=== PATIENT | female | born 1975 | race African-American/Black ===

== ENCOUNTER 2016-08-31 09:46 | Inpatient (IN) | payer OTHER ==
[2016-08-31] MEDS ORDERED: TYLENOL PO PRN (10:49)
[2016-08-31] MEDS ORDERED: VANCOMYCIN IV PER PHARMACY MISC SCH (11:00)
[2016-08-31 12:03] LABS: MANUAL DIFF NEEDED? NO
[2016-08-31 12:14] LABS: BASO% 0.3 % (0.0-0.8); EOS% 1.5 % (0.0-10.0); HEMATOCRIT 35.6 % (37.0-47.0); HEMOGLOBIN 11.6 g/dL (12.0-16.0); IMM GRAN# 0.02 X1000 (0.0-0.04); IMM GRAN% 0.2 % (0.0-0.5); LYMPH# 2.98 X1000 (1.2-3.4); LYMPH% 22.7 % (20.5-51.1); MCH 26.5 PG (27-31); MCHC 32.6 g/dL (33-37); MCV 81.3 FL (81-99); MONO% 6.1 % (1.7-9.3); MPV 11.4 FL (7.4-10.4); NEUT% 69.2 % (42.2-75.2); PLT 331 X1000 (130-400); RBC 4.38 XMIL (4.2-5.4)
[2016-08-31 12:28] LABS: INR 1.07; PROTIME 11.3 Seconds (9.2-11.7)
[2016-08-31 12:31] LABS: AGAP 14; ALBUMIN 3.1 g/dL (3.5-5.0); ALKALINE PHOSPHATASE 80 U/L (32-104); BUN 6 mg/dL (8-22); CALCIUM 8.8 mg/dL (8.8-10.2); CHLORIDE 93 mmol/L (98-107); COSMO 260; GOT 8 U/L (10-30); GPT 6 U/L (10-36); POTASSIUM 2.9 mmol/L (3.5-5.1); SODIUM 131 mmol/L (136-145); TCO2 24 mmol/L (25-35); TOTAL BILIRUBIN 0.32 mg/dL (0.20-1.00); TOTAL PROTEIN 8.7 g/dL (6.3-8.3)
[2016-08-31] MEDS ORDERED: KLOR-CON PO ONE (13:37)
[2016-08-31] MEDS: OXYCONTIN PO SCH ×2 (13:57→20:19)
[2016-08-31] MEDS: LYRICA PO SCH ×2 (13:57→16:49)
[2016-08-31] MEDS: ZOSYN 3.375 GM/NS 50 ML IV SCH ×4 (13:58→23:48)
[2016-08-31] MEDS: XANAX PO SCH ×2 (13:58→16:49)
[2016-08-31] MEDS: NS 1,000 ML IV SCH (13:58)
[2016-08-31] MEDS ORDERED: VANCOMYCIN 2,000 MG in NS 500 ML IV ONE (14:00)
[2016-08-31 14:36] LABS: URINE MICRO REVIEW NEEDED? NO; URINE SOURCE CLEAN CATCH
[2016-08-31 14:51] LABS: BILIRUBIN URINE NEGATIVE (NEGATIVE); BLOOD URINE NEGATIVE (NEGATIVE); COLOR YELLOW; GLUCOSE URINE NEGATIVE (NEGATIVE); LEUKOCYTES URINE MODERATE (NEGATIVE); NITRITE URINE NEGATIVE (NEGATIVE); PROTEIN URINE TRACE mg/dL (NEGATIVE); SP GRAVITY URINE 1.018; TURBIDITY URINE HAZY (CLEAR); UROBILINOGEN URINE 4 mg/dL (NORMAL)
[2016-08-31 14:52] LABS: UR EPITHELIAL CELLS >10 /HPF (<10); URINE BACTERIA NEGATIVE /HPF; URINE RBC <10 /HPF (<10); URINE WBC <10 /HPF (<10)
[2016-08-31 14:59] LABS: UR AMPHETAMINES QUAL NONE DETECTED (NONE DETECT); UR BARBITUATES QUAL NONE DETECTED (NONE DETECT); UR BENZODIAZEPIN QUAL NONE DETECTED (NONE DETECT); UR CANNABINOIDS QUAL NONE DETECTED (NONE DETECT); UR COCAINE QUAL NONE DETECTED (NONE DETECT); UR METHADONE QUAL NONE DETECTED (NONE DETECT); UR OPIATES QUAL NONE DETECTED (NONE DETECT); UR OXYCODONE QUAL PRESUMPTIVE POSITIVE (NONE DETECT); UR PCP QUAL NONE DETECTED (NONE DETECT)
--- NOTE | 2016-08-31 16:41 | HISTORY AND PHYSICAL ---
CHIEF COMPLAINT: Pain and swelling in her left lower arm as well as bilateral lower extremities and the upper thigh above the knee. Swelling and pain. HISTORY OF PRESENT ILLNESS: Ms. Randhawa is a 41-year-old, female, who has a history, she reports of IV drug abuse. She states that she has not done IV drugs in 7 years, chronic pain disorder, hypertension,that she does not take medications for, restless legs syndrome, sleep apnea. She stopped using a CPAP machine a few years ago. Migraines as well as restless legs syndrome and depression and anxiety. The patient has been treated for multiple abscesses at [facility] as well back in December 2015 and then again back in June 2016 and then again 2 weeks ago from [facility] in 2017 where she was placed on clindamycin and Bactrim. She did see the [facility] who referred her to Dr. Hunt. The patient also stated that back in February 2016, she was visiting her sister in [place]. She was brought to [facility] for the same thing again, abscesses. At that time, she was discharged with home IV antibiotics. The patient reported that her bilateral upper thigh abscesses, which are above both knees and then one higher up on her right thigh as well as one on her lower right singleton that are reddened and look irritated, somewhat oozy, some are more healed than others. She states that she went to [facility] 2 weeks ago where she was put on clindamycin and Bactrim for those. She states the abscess on her left lower extremity popped up on Wednesday on 08/30/2016. The patient did report subjective fevers and chills. The patient did go to see Dr. Hunt today. She was a direct admit and started on IV vancomycin as well as IV Zosyn. Patient denies any chest pain, shortness of breath, palpitations, no nausea, vomiting, diarrhea. Again, she adamantly denies still doing any IV drug use. However, her sites multiple on upper and lower extremities that look like she has IV popping. We have ordered a urine drug screen and waiting a multitude of tests. PAST MEDICAL HISTORY: Chronic pain disorder, depression and anxiety, hypertension but on no home medications, sleep apnea, but patient stopped using her CPAP machine years ago, migraines, restless legs syndrome. PAST SURGICAL HISTORY: 1. Back surgery. 2. . 3. Hysterectomy. 4. Tubal ligation. 5. Multiple incision and drainages to abscesses on upper and lower extremities. SOCIAL HISTORY: Patient denies any IV drug use. She stated that was 7 years ago. She stated at 1 point it was oxycodone and Dilaudid and she told Dr. Hunt heroine. 15 pack year history of smoking. Denies any alcohol. FAMILY HISTORY: Reviewed, noncontributory. ALLERGIES: No known drug allergies. HOME MEDICATIONS: 1. Stated that she took a Xanax 0.5 mg p.o. t.i.d. 2. OxyContin 30 mg p.o. t.i.d. 3. Lyrica 100 mg p.o. t.i.d. PHYSICAL EXAMINATION: VITAL SIGNS: Have not been taken. GENERAL: Ms. Randhawa is a 41-year-old, female, sitting up in bed, in no acute distress. However, she does look shaky and tearful. HEENT: Atraumatic, normocephalic. PERRL. NECK: Supple. Trachea midline. CARDIOVASCULAR: Regular rate and rhythm. No murmurs, gallops, rubs noted. PULMONARY: Bilateral breath sounds. Clear to auscultation bilaterally. GI: Soft, nontender, nondistended. Bowel sounds are present. EXTREMITIES: There is no clubbing or cyanosis or bilateral lower extremity edema. SKIN: On her left forearm, she does have a red, swollen area that does appear to be an abscess that Dr. Hunt did cultures on. She also has another area on her left chest close to her armpit as well as other several other areas on her upper extremities as well as lower extremities, mainly on the upper thigh she does have one on the right lower extremity. I did check her feet. I did not find any ulcers or any skin breakage on her feet. NEUROLOGIC: Patient is alert and oriented x4. She does follow commands. She does move all extremities. LABORATORY DATA: None, DIAGNOSTIC DATA: None. They are all pending. ASSESSMENT AND PLAN: 1. Multiple skin abscesses. Possibly question of intravenous drug use. The patient was seen by Dr. Hunt today. She was a direct admit. Started intravenous Zosyn as well as vancomycin. He has cultured one of the wound. We have ordered blood cultures, as well as laboratory data as well as wound care and also a Surgical consultation for the left wound on the forearm. 2. Intravenous drug use history. Given the looks of the abscesses as well as multiple places on her arms, we do believe that the patient is possibly still doing intravenous drugs. We have checked a urine drug screen. We will monitor her closely for any withdrawals. 3. Chronic pain disorder. Continue with her home medications. 4. Depression and anxiety. Continue with home medications. 5. Hypertension. We will monitor. No vital signs to correlate yet. 6. Restless leg syndrome. Aware. 7. Migraines. Aware. Further recommendations are to follow physician evaluation, laboratory data as well as diagnostic data and cultures. Dictated by NAI Gama for Con Mcintyre MD MTDD
[2016-08-31] MEDS: NICODERM PATCH TD SCH (16:45)
--- NOTE | 2016-08-31 17:50 | CONSULTATION ---
DATE OF CONSULTATION: 08/31/2016 CONCLUSION: This is a 41-year-old female who was admitted the hospital with multiple areas where she previously has had abscesses. In addition, she has a new one in her left arm which has gotten to be very large and painful. It should be noted that the patient does have a history of IV drug abuse which certainly could be the cause of her abscesses. RECOMMENDATIONS: After cleaning off the arm I stuck a very small gauge needle about a centimeter deep and some sanguinous and purulent fluid was obtained which I have sent to the lab for culture. I also suggest starting the patient on a combination of vancomycin and Zosyn pending culture results. DISCUSSION: The patient tells me that for the past 3.5 years. She has had abscesses that occur all over her body and often have to be drained. She takes antibiotics to clear them, the ones that do not require drainage. Her most recent one is in the left arm. It in the past week has gotten very swollen erythematous. I do not have any lab work back yet on the patient. LAB AND X-RAYS: Also, there are no lab or radiographic studies yet. PAST GUIDANCE ADVISER HISTORY: She is a 3, para 3, AB0. She has had a hysterectomy and tubal ligation. PREVIOUS HOSPITALIZATIONS AND OPERATIONS: She has had labor and deliveries, a hysterectomy, tubal ligation, admission for infection involving the right knee, and also was admitted for abscesses to [facility]. She has been admitted before for IV antibiotics due to infection which most likely was caused by IV drug abuse. MEDICAL DISEASES: Positive for hypertension and IV drug abuse. INFECTIOUS DISEASE HISTORY: Positive for cutaneous abscesses most likely secondary to IV drug abuse, urinary tract infection, and pneumonia. FAMILY HISTORY: Positive for hypertension and cancer. SOCIAL HISTORY: The patient lives in [place]. She is single. She smoke cigarettes. She denies alcoholic beverages. She denied having drug abuse but according to the prior hospitalization in [facility] and 1 in [facility] the patient is an IV drug abuser. She is on disability. ALLERGIES: She has no allergies. HOME MEDICATIONS: She told me her home medications consist of Xanax, OxyContin , and Lyrica. REVIEW OF SYSTEMS: Eyes and ears: She denies difficulty hearing or seeing. Neck: No stiffness. Respiratory: No cough or shortness of breath. Cardiac: No chest pain or palpitations. GI: No nausea, vomiting, or diarrhea. : No dysuria or flank pain. Bones, joints, muscles: No muscle aching or joint swelling at this time. Previously she apparently had infection involving her right knee. Endocrine: The patient is not a diabetic and she does not have thyroid disease. Neurologic: No motor or sensory deficit. No seizures. The remainder of the patient's review of systems was completed and was negative. PHYSICAL EXAMINATION: Vital Signs: Vital signs have not been put in the computer yet except for the patient's weight which is 209 pounds. Generally: This is an obese, young female, who seems to be having a lot of pain, especially with the infection in her left arm. Head, eyes, ears, nose, and throat: She can hear my spoken words and see near objects. No drainage noted from the nose or ears. Neck: No meningismus. Thorax: No increased AP diameter. Lungs : Clear to auscultation. Cardiovascular: Regular heart rate. Abdomen: Soft and nontender. Integument: The patient has a fairly large erythematous, indurated, and fluctuant area on her left arm. The patient has multiple scars from prior infections on her body including her extremities. Neurologic: Patient is awake. She can move her extremities. There is no tremor. The patient's memory as regarding her medical history seemed to be fairly good. Thank you for the consult. MTDD
[2016-09-01] MEDS: LYRICA PO SCH ×3 (00:02→17:01)
[2016-09-01] MEDS: XANAX PO SCH ×3 (00:02→17:01)
[2016-09-01] MEDS: ZOSYN 3.375 GM/NS 50 ML IV SCH ×3 (04:35→17:01)
[2016-09-01] MEDS: OXYCONTIN PO SCH ×3 (04:35→21:44)
[2016-09-01] MEDS: VANCOMYCIN 1,750 MG in NS 250 ML IV SCH ×2 (04:36→17:39)
--- NOTE | 2016-09-01 05:36 | CONSULTATION ---
DATE OF CONSULTATION: 09/01/2016 REASON FOR CONSULTATION: Left forearm abscess. HISTORY OF PRESENT ILLNESS: A 41-year-old female with recurrent abscesses all over body, most notably in her left forearm. This has been going on for some time, probably several weeks. She has a very tender, swollen, and red area in the forearm. She has a history of IV drug injections and multiple infections of her extremities. PAST MEDICAL HISTORY: Chronic pain disorder, hypertension, depression, anxiety, restless legs syndrome, sleep apnea, migraines, IV drug abuse, and multiple skin infections. PAST SURGICAL HISTORY: Back surgery, section, hysterectomy, and tubal ligation. HOME MEDICATIONS: Xanax, OxyContin, and Lyrica. ALLERGIES: No known drug allergies. FAMILY HISTORY: Reviewed and noncontributory. SOCIAL HISTORY: She does smoke and has a history of IV drug use. REVIEW OF SYSTEMS: Ten systems reviewed and negative, except as noted above. PHYSICAL EXAMINATION: Vital Signs: Temperature 97.9 degrees, pulse 72, respirations 16, blood pressure 119/47. General: She is a well-developed female, who looks uncomfortable. She looks her stated age. HEENT: Normocephalic, atraumatic. Extraocular muscles intact. Pupils equal, round, reactive to light. Sclerae anicteric. Moist mucous membranes. Neck: Supple. No thyromegaly. Cardiovascular: Regular rate and rhythm. Respiratory: Bilateral equal breath sounds. Gastrointestinal: Soft, nontender, nondistended. No mass or organomegaly appreciated. Extremities: She has swelling in her left forearm. No clubbing or cyanosis throughout. Skin: There are multiple healing ulcerations in all extremities with scabs and some open sores. She has no evidence of any hidradenitis in her groin or axilla. She does have what appears to be multiple scars and injection sites along her arms and chest, and the left forearm there is a very tender, indurated, and fluctuant area consistent with an abscess. LABORATORY: White blood cell count 13,000, hemoglobin 11.6, platelet count 331,000. Sodium 131, potassium 2.9, chloride 93, CO2 24, BUN 6. ASSESSMENT/PLAN: A 41-year-old female with left forearm abscess, likely secondary to IV drug injection. This does not appear to be consistent with any kind of hidradenitis suppurativa. She will need drainage in the operating room. Discussed the risks and benefits with her including bleeding, recurrent infections, nerve injury, and other imponderables. She understands and agrees to proceed.
[2016-09-01] MEDS: NS 1,000 ML IV SCH ×2 (07:15→13:24)
[2016-09-01 07:45] LABS: AGAP 11; BUN 9 mg/dL (8-22); CALCIUM 7.6 mg/dL (8.8-10.2); CHLORIDE 105 mmol/L (98-107); COSMO 275; POTASSIUM 3.2 mmol/L (3.5-5.1); SODIUM 139 mmol/L (136-145); TCO2 23 mmol/L (25-35)
[2016-09-01 07:58] LABS: HEMATOCRIT 30.9 % (37.0-47.0); HEMOGLOBIN 9.7 g/dL (12.0-16.0); MCH 26.8 PG (27-31); MCHC 31.4 g/dL (33-37); MCV 85.4 FL (81-99); MPV 11.1 FL (7.4-10.4); RBC 3.62 XMIL (4.2-5.4)
[2016-09-01] MEDS: PRILOSEC PO SCH (09:54)
[2016-09-01] MEDS: NICODERM PATCH TD SCH (09:54)
[2016-09-01] MEDS ORDERED: KLOR-CON PO ONE (14:31)
[2016-09-01] MEDS ORDERED: VERSED ONE (14:36)
--- NOTE | 2016-09-01 15:49 | PROGRESS NOTE ---
DATE: 09/01/2016 PRESENT ILLNESS: The patient has multiple abscesses all over her body. Most of them have drained out and are scarred over. She has an especially bad 1 on her left arm which has been present for approximately a week that is very erythematous, indurated, and fluctuant. MEDICATIONS: The patient is on a combination of vancomycin and Zosyn pending culture results. PHYSICAL EXAMINATION: Vital Signs: Temperature is 97.9 degrees, pulse 71, respirations 16, blood pressure 118/68. General: This is an ill-appearing, young female. She is in no acute distress. Lungs: Clear to auscultation. Cardiovascular: Regular heart rate. Abdomen: Soft and nontender. Integument: Patient has multiple areas that at 1 time were abscessed and now have drained and are scarred over. She has, as mentioned above, on the left arm a very large erythematous, indurated, and fluctuant area. LAB AND X-RAY: There is no new x-ray report back yet today. Patient's CBC shows a white count of 12,550, hemoglobin 9.7, and platelet count 286,000. Creatinine is 0.6. GFR is greater than 60. Blood, urine, and a culture from the patient's left arm thus far are negative. ASSESSMENT AND PLAN: The patient has been taken off now for surgery to be performed by Dr. Cano. My plan is to continue her current antibiotics pending culture results. Patient's comorbidity is that she has a history of IV drug abuse. She told me that it has been over 5 years that she not done any IV drug abuse but she does have all these abscesses over her body and it would seem that she still may be doing IV drug abuse. She had mentioned the disease hydradenitis suppurativa but I and Dr. Cano do not feel that these lesions are due to that diagnosis.
[2016-09-01] MEDS ORDERED: DIPRIVAN 1% ONE (15:50)
[2016-09-01] MEDS ORDERED: PHENERGAN ONE (16:02)
[2016-09-01] MEDS: DILAUDID ONE ×3 (16:02→16:15)
--- NOTE | 2016-09-01 16:18 | OPERATIVE NOTE ---
PROCEDURE DATE: 09/01/2016 PREOPERATIVE DIAGNOSIS: Left forearm abscess. POSTOPERATIVE DIAGNOSIS: Left forearm abscess. PROCEDURE: Incision and drainage of left forearm abscess. SURGEON: Rafy Cano MD. ANESTHESIA: General. ESTIMATED BLOOD LOSS: 3 mL. COMPLICATIONS: None apparent. FINDINGS: A large amount of purulent fluid in the superficial subcutaneous tissue. TECHNIQUE: She was brought to the operating room and placed supine on the table. General anesthesia was induced. Her left arm was placed on a armboard. It was prepped and draped in the usual sterile fashion. A knife was used to make incision over the fluctuant area. A large amount of pus was drained. The wound was irrigated with saline. My finger was used to break up any loculations. The wound was then packed with iodoform gauze and the arm was wrapped with gauze. She tolerated this without apparent complication.
--- NOTE | 2016-09-01 17:29 | PROGRESS NOTE ---
DATE: 09/01/2016 SUBJECTIVE: Patient is complaining of mild pain in the left lower arm. No fever or chills. OBJECTIVE: Vital Signs: Temperature 97.9, heart rate 65, respiratory rate 16, blood pressure 118/68, O2 saturating 94% on room air. General Examination: This is a 41-year-old, female lying in bed, in no acute distress. HEENT: Head is normocephalic, atraumatic. Anicteric sclerae and pale conjunctivae. Mucous membranes moist. Neck: Supple. No JVD noted. No carotid bruits. No lymphadenopathy. No thyromegaly. Cardiovascular: S1, S2 heard. No murmurs, gallops, or rubs. Regular rate and rhythm. Respiratory: Clear bilaterally to auscultation. No work of breathing or using accessory muscles. Abdomen: Soft, nontender to palpation. Bowel sounds present. No organomegaly. Extremities: No clubbing, cyanosis, or edema. Peripheral pulses present in both legs. There is also on the left forearm red swollen area that looks to be an abscess. Neurologic: Patient alert, oriented x3. Moves 4 extremities. Cranial nerves 2-12 grossly normal. LABORATORY DATA: Reviewed. ASSESSMENT: 1. Multiple skin abscess. 2. History intravenous drug abuse. 3. Chronic pain disorder. 4. Depression and anxiety. 5. Hypertension. 6. Restless legs syndrome. 7. Migraines. PLAN: Patient has been admitted to the hospital as a direct admission per Dr. Hunt for recurrent abscess. One that happened to her this time is located in the left forearm that is very suspicious for IV drug use. The patient refused that she was using IV drugs this time. In any case, the patient has been started on vancomycin and Zosyn and she is going to get drainage of that abscess later today. At this point, we will continue antibiotics as outlined per Dr. Hunt. We will continue for the rest of the conditions with home medications.
[2016-09-01] MEDS: ZOFRAN IV PRN (19:27)
[2016-09-02] MEDS: ZOSYN 3.375 GM/NS 50 ML IV SCH ×4 (00:02→16:19)
[2016-09-02] MEDS: XANAX PO SCH ×3 (00:02→16:19)
[2016-09-02] MEDS: LYRICA PO SCH ×3 (00:02→16:19)
[2016-09-02] MEDS: ZOFRAN IV PRN ×4 (01:41→21:21)
[2016-09-02] MEDS: NS 1,000 ML IV SCH ×2 (05:53→21:04)
[2016-09-02] MEDS: PRILOSEC PO SCH ×2 (05:58→06:00)
[2016-09-02 07:29] LABS: MANUAL DIFF NEEDED? NO
[2016-09-02 07:36] LABS: BASO% 0.4 % (0.0-0.8); EOS% 5.7 % (0.0-10.0); IMM GRAN# 0.02 X1000 (0.0-0.04); IMM GRAN% 0.2 % (0.0-0.5); LYMPH# 2.85 X1000 (1.2-3.4); LYMPH% 26.9 % (20.5-51.1); MCH 26.5 PG (27-31); MCHC 31.3 g/dL (33-37); MCV 84.7 FL (81-99); MONO# 0.93 X1000 (0.11-0.59); MONO% 8.8 % (1.7-9.3); MPV 10.8 FL (7.4-10.4); PLT 308 X1000 (130-400); RBC 3.78 XMIL (4.2-5.4)
[2016-09-02 07:44] LABS: AGAP 10; BUN 8 mg/dL (8-22); CALCIUM 7.9 mg/dL (8.8-10.2); CHLORIDE 104 mmol/L (98-107); COSMO 275; POTASSIUM 3.5 mmol/L (3.5-5.1); SODIUM 138 mmol/L (136-145); TCO2 24 mmol/L (25-35)
[2016-09-02] MEDS: NICODERM PATCH TD SCH (08:06)
[2016-09-02] MEDS: OXYCONTIN PO SCH ×2 (08:06→21:04)
--- NOTE | 2016-09-02 08:39 | PROGRESS NOTE ---
DATE: 09/02/2016 PRESENT ILLNESS: The patient is status post incision and drainage of a left forearm abscess performed by Dr. Cano yesterday. The patient also has a gram-negative darling bacteremia, most likely originating from her left upper arm abscess. MEDICATION: The patient is on a combination of vancomycin and Zosyn. PHYSICAL EXAMINATION: Vital Signs: Temperature is 97.9 degrees, pulse 85, respirations 20, blood pressure 108/60. Generally: This is an ill-appearing young female, who currently is in no acute distress. Lungs: Clear to auscultation. Cardiovascular: Regular heart rate. Abdomen: Soft and nontender. Neurologic: The patient is awake. She can move her extremities. Extremities: The patient has a large dressing around the left arm. The dressing is intact. There are areas on her legs where there has been excoriation of lesions that the patient has had initially had pus in them. LAB AND X-RAY: The patient's CBC shows a white count of 10,590, hemoglobin 10, and platelet count 308,000. Creatinine is 1.0. GFR is greater than 60. Blood cultures are growing gram-negative rods from the abscess. Gram stain showed white cells but no organisms and cultures thus far taken from the abscess are negative as well. Blood cultures are sterile also. ASSESSMENT AND PLAN: The patient has a bacteremia, most likely originating from her arm abscess and she is status post drainage of the abscess. My plan would be to continue treating with vancomycin and Zosyn pending final culture results. The patient's lab today shows a CBC with a white count of 10,590, hemoglobin 10, and platelet count 308,000. Creatinine is 1.0, GFR is greater than 60. ASSESSMENT AND PLAN: The patient has an arm abscess with bacteremia/ my plan will be to continue with her current antibiotics pending final culture results. COMORBIDITIES: Include the fact that she is obese. She also is a diabetic. There is a history of IV drug abuse, which the patient states she has not done in 5 years.
--- NOTE | 2016-09-02 08:52 | PROGRESS NOTE ---
DATE: 09/02/2016 SUBJECTIVE: The patient says her arm feels better. OBJECTIVE: Vital Signs: She is afebrile. Vital signs are stable. General: Alert and oriented x4. No acute distress. Extremities: Left forearm was wrapped with gauze. LABORATORY: White blood cell count 67911, hemoglobin 10. Culture results are pending. ASSESSMENT AND PLAN: A 41-year-old female, status post left forearm abscess incision and drainage. She should continue broad-spectrum antibiotics. We will follow up the culture results and modify antibiotics as needed. She needs iodoform dressing changes of the forearm daily.
--- NOTE | 2016-09-02 11:11 | PROGRESS NOTE ---
DATE: 09/02/2016 SUBJECTIVE: Patient complaining of mild pain in the left forearm and also all over her body because she reports that she had fibromyalgia. She denies using IV drugs in a long time. OBJECTIVE: Vital Signs: Temperature 97.9 degrees, heart rate 85, respiratory rate 20, blood pressure 108/60, O2 saturation 97% on room air. General: This is a 41-year-old female lying in bed in no acute distress. HEENT: Head is normocephalic, atraumatic. Anicteric sclerae and pale conjunctivae. Neck: Supple. No JVD noted. Nontender. No carotid bruits. Cardiovascular: S1 and S2 heard. No murmurs, gallops, or rubs. Regular rate and rhythm. Respiratory: Clear bilaterally to auscultation. No work of breathing or using accessory muscles. Abdomen: Soft, nontender to palpation. Bowel sounds present. No organomegaly. Extremities: No clubbing, cyanosis, or edema. Peripheral pulses in both legs. Left forearm covered by dressing. Neurological: Patient alert and oriented x3. Moves 4 extremities. LABORATORY DATA: White cell count 10.59, hemoglobin 10.0, hematocrit 32.0, platelets 308,000. BMP unremarkable. ASSESSMENT AND PLAN: 1. Multiple skin abscesses. 2. Left forearm abscess status post incision and drainage. 3. History of intravenous drug abuse. 4. Fibromyalgia. 5. Depression and anxiety. 6. Hypertension. 7. Migraine. 8. Restless legs syndrome. PLAN: 1. Patient has been admitted for consult and further recommendations for recurring abscesses. She had 1 in the left forearm that has been drained already by Dr. Cano. We are basically waiting for results of blood cultures. Preliminary report indicates Gram-negative rods in the blood. Considering the history of IV drug abuse, we may probably need to send this patient to LTC for the time that she requires to clear this Gram-negative bacteremia. 2. We will continue monitoring this patient closely.
[2016-09-02] MEDS ORDERED: VANCOMYCIN 1,750 MG in NS 250 ML IV SCH (18:00)
[2016-09-03] MEDS: LYRICA PO SCH ×4 (01:15→22:55)
[2016-09-03] MEDS: XANAX PO SCH ×4 (01:15→22:54)
[2016-09-03] MEDS: ZOSYN 3.375 GM/NS 50 ML IV SCH ×3 (01:16→11:00)
[2016-09-03] MEDS: PRILOSEC PO SCH ×2 (05:24→06:00)
[2016-09-03] MEDS: ZOFRAN IV PRN ×2 (05:24→10:59)
[2016-09-03] MEDS: NS 1,000 ML IV SCH ×2 (06:00→14:12)
[2016-09-03 07:23] LABS: MANUAL DIFF NEEDED? NO
[2016-09-03 07:32] LABS: BASO% 0.5 % (0.0-0.8); EOS# 0.74 X1000 (0.0-0.7); EOS% 7.9 % (0.0-10.0); HEMATOCRIT 34.4 % (37.0-47.0); HEMOGLOBIN 10.7 g/dL (12.0-16.0); LYMPH# 2.55 X1000 (1.2-3.4); LYMPH% 27.3 % (20.5-51.1); MCH 26.5 PG (27-31); MCHC 31.1 g/dL (33-37); MCV 85.1 FL (81-99); MONO# 0.88 X1000 (0.11-0.59); MONO% 9.4 % (1.7-9.3); MPV 11.2 FL (7.4-10.4); NEUT% 54.9 % (42.2-75.2); PLT 282 X1000 (130-400); RBC 4.04 XMIL (4.2-5.4)
[2016-09-03 07:45] LABS: CALCIUM 8.4 mg/dL (8.8-10.2); POTASSIUM 4.1 mmol/L (3.5-5.1)
[2016-09-03] MEDS: OXYCONTIN PO SCH ×2 (08:25→22:56)
[2016-09-03] MEDS: NICODERM PATCH TD SCH (08:26)
[2016-09-03] MEDS ORDERED: VANCOMYCIN 1,650 MG in NS 250 ML IV SCH (14:00)
--- NOTE | 2016-09-03 14:31 | PROGRESS NOTE ---
DATE: 09/03/2016 PRESENT ILLNESS: The patient is status post incision and drainage of a left forearm abscess. The patient has grown Klebsiella from the forearm abscess. The blood isolate turns out to be a bacillus species, which is a gram-positive darling and no gram negative darling was recovered from the blood cultures. I think that the bacillus positive blood culture is a contaminant. MEDICATIONS: The patient is on a combination of vancomycin and Zosyn. PHYSICAL EXAMINATION: Vital Signs: Temperature is 97.9 degrees, pulse 48, respirations 16, blood pressure 121/58. Generally: This is a fairly healthy-appearing, young female. She is in no acute distress. Lungs: Clear to auscultation. Cardiovascular: Regular heart rate. Abdomen: Soft and nontender. Extremities: The left arm has a large dressing around it. The as the dressing is intact. The patient has multiple other areas on her legs and the chest. These all appear to be scarring down. None of them are draining and none of them are fluctuant or tender. LABORATORY AND X-RAY: There is no new x-ray. The patient's lab studies show a CBC with a white count of 9300, hemoglobin 10.7, and platelet count 282,000. Creatinine is 1.6. GFR is 43. The patient grew from her wound Klebsiella. The blood culture grew bacillus. ASSESSMENT AND PLAN: 1. I have discontinued vancomycin and Zosyn and instead have put the patient on Levaquin in a dose of 500 mg daily p.o. The plan is to discharge the patient tomorrow. I already have a prescription in the chart for Levaquin 500 mg daily for 14 days. I am requesting the patient see me in the office in [address] Cano will handling the patient's dressings on the patient's left arm and he will be seeing her in follow up also. I have discontinued Zofran also in order to prevent interaction with Levaquin. 2. The patient's comorbidity is that she is obese. She also is a diabetic and there is a history of intravenous drug abuse, although the patient states she not done any intravenous drug abuse for 5 years. It is hard for me to understand how she could have developed an abscess in her left arm from Klebsiella other than with injecting drugs.
--- NOTE | 2016-09-03 15:25 | PROGRESS NOTE ---
DATE: 09/03/2016 SUBJECTIVE: The patient says her arm was feeling better than before surgery. OBJECTIVE: Vital signs: She is afebrile. Vital signs are stable. General: Alert and orient x3. No acute distress. Extremities: The left forearm dressing was taken down. There is significantly less swelling, induration and erythema. There is no gross purulence from the wound. Culture data shows Klebsiella in the wound. ASSESSMENT/PLAN: This patient is status post incision and drainage of left forearm abscess. This is highly likely to be secondary to IV drug abuse given her history. In any case, it is improving. I do agree that she could be discharged tomorrow on oral antibiotics. I have instructed her to continue packing the wound with Iodoform gauze once daily for least normal week. She can follow up with me and in 1 week for wound check.
--- NOTE | 2016-09-03 15:53 | PROGRESS NOTE ---
DATE: 09/03/2016 SUBJECTIVE: Patient is feeling fine. Denies any fever or chills. Denies using IV drugs for at least 5 years. OBJECTIVE: Vital Signs: Temperature 97.9 degrees, heart rate 80, respiratory 16, blood pressure 121/58, O2 saturation 100% on room air. General Examination: This is a 41-year-old female lying in bed, in no acute distress. HEENT: Head is normocephalic, atraumatic. Anicteric sclerae and pale conjunctivae. Mucous membranes moist. Neck: Supple. No JVD noted. No carotid bruits. No lymphadenopathy. No thyromegaly. Cardiovascular: S1, S2 heard. No murmurs, gallops, or rubs. Regular rate and rhythm. Respiratory: Clear bilaterally to auscultation. No work of breathing or using accessory muscles. Abdomen: Soft, nontender to palpation. Bowel sounds present. No organomegaly. Extremities: No clubbing, cyanosis, or edema. Peripheral pulses present in both legs. The left forearm covered by dressing. Neurological: Patient is alert and oriented x3. Moves 4 extremities. LABORATORY DATA: White cell count 9.33, hemoglobin 10.7, hematocrit 34.4, platelets 282,000. BMP unremarkable except creatinine 1.6. ASSESSMENT AND PLAN: 1. Multiple skin abscesses. 2. Left forearm abscess status post incision and drainage. 3. Acute kidney injury. 4. History of IV drug abuse. 5. Fibromyalgia. 6. Depression and anxiety. 7. Hypertension. 8. Migraine. 9. Restless legs syndrome. The patient is doing fine. Blood cultures have shown positive for bacillus which is considered a contaminant. Culture from the surgical specimen grows Klebsiella. Dr. Hunt, who is following this patient prefers to change antibiotics to Levaquin 500 mg p.o. daily for 2 weeks. Patient is supposed to see him in the office in 2-[address] aCno who performed the incision and drainage is okay to let this patient go. Because she was on vancomycin and Zosyn she developed acute kidney injury. We are going to check [facility] tomorrow to see how she does.
[2016-09-04] MEDS: PRILOSEC PO SCH (06:24)
[2016-09-04] MEDS: NS 1,000 ML IV SCH (06:25)
[2016-09-04] MEDS: XANAX PO SCH (06:25)
[2016-09-04] MEDS: LYRICA PO SCH (06:25)
[2016-09-04 06:30] LABS: MANUAL DIFF NEEDED? NO
[2016-09-04 06:45] LABS: BASO% 0.1 % (0.0-0.8); EOS# 0.88 X1000 (0.0-0.7); EOS% 10.6 % (0.0-10.0); HEMATOCRIT 32.3 % (37.0-47.0); HEMOGLOBIN 10.1 g/dL (12.0-16.0); LYMPH# 2.93 X1000 (1.2-3.4); LYMPH% 35.1 % (20.5-51.1); MCH 26.6 PG (27-31); MCHC 31.3 g/dL (33-37); MONO# 0.64 X1000 (0.11-0.59); MONO% 7.7 % (1.7-9.3); MPV 11.2 FL (7.4-10.4); NEUT% 46.5 % (42.2-75.2); PLT 263 X1000 (130-400)
[2016-09-04 07:17] LABS: CALCIUM 8.2 mg/dL (8.8-10.2); POTASSIUM 4.3 mmol/L (3.5-5.1)
[2016-09-04 09:34] VITALS: BP 140/74
[2016-09-04] MEDS: OXYCONTIN PO SCH (09:36)
[2016-09-04] MEDS: NICODERM PATCH TD SCH (09:36)
--- NOTE | 2016-09-04 09:39 | PROGRESS NOTE ---
DATE: 09/04/2016 PRESENT ILLNESS: The patient has a Klebsiella left arm abscess. She has had incision and drainage of the abscess as well as debridement performed by Dr. Rafy Cnao. MEDICATIONS: The patient is on Levaquin. PHYSICAL EXAMINATION: Vital Signs: Temperature is 97.7 degrees, pulse 47, respirations 20 and blood pressure 124/71. General: This is a fairly healthy-appearing young female. She is in no acute distress. Lungs: Clear to auscultation. Cardiovascular: Regular heart rate. Abdomen: Soft and nontender. Extremities: The patient's left arm has a dressing around it. The dressing is intact. LAB AND X-RAY: The patient's CBC today shows a white count of 8340, hemoglobin 10.1, and platelet count 263,000. Creatinine is 1.4. GFR is 51. ASSESSMENT AND PLAN: I think the patient can be discharged today. I have requested that she see me in my office 2 weeks after discharge. I have written a prescription for Levaquin to be taken 500 mg p.o. daily. I have written for 14 of them which should coincide with the time that she sees me in the office in 2 weeks. The patient's comorbidity is that we feel that the patient does inject herself with narcotics and that is the cause of her infection in the left arm. [facility]
[2016-09-04] MEDS ORDERED: LEVAQUIN PO SCH (13:00)
--- NOTE | 2016-09-04 20:44 | DISCHARGE SUMMARY ---
ADMISSION DATE: 08/31/2016 DISCHARGE DATE: 09/04/2016 CONSULTATIONS: 1. Rafy Cano M.D., General Surgery. 2. Azael Hunt M.D., Infectious Disease. PERTINENT PROCEDURES: I and D of left forearm abscess performed by Dr. Rafy Cano. DISCHARGE DIAGNOSES: 1. Multiple skin abscesses secondary to what we believe is skin popping with her pain medication. 2. Left forearm abscess status post I and D drainage by Dr. Cano. It did grow out Klebsiella oxytoca. Blood cultures negative. Patient going home on p.o. antibiotics to be followed by Dr. Hunt with Levaquin for 2 weeks. 3. Acute kidney injury secondary to vancomycin and Zosyn. Patient was switched to p.o. Levaquin. She was given IV hydration and it is improved. 4. History of IV drug abuse. Aware. The patient's urine drug screen only showed her prescription. It was only positive for oxycodone which she has a prescription for. 5. Fibromyalgia. Continue with home medications. 6. Depression and anxiety. Continue with Xanax. 7. Hypertension stable. 8. Migraines stable. 9. Restless legs syndrome. HOSPITAL COURSE: Briefly, Ms Randhawa is a 41-year-old, female who has a history of reported IV drug use. She states she has not used IV drugs in 7 years. Chronic pain disorder and hypertension that she does not take medications for, restless leg syndrome, sleep apnea and stopped using a CPAP machine years ago, migraines, depression and anxiety. The patient has been treated for multiple abscesses at [facility] back in December 2015 and before, then again in June 2016, and again 2 weeks ago at [facility] in 2017. She was placed on clindamycin and Bactrim. She was referred to Dr. Hunt at that time. The patient also stated back in February 2016 when she was visiting her sister in [place] she was brought to [place] for the same thing again. For her abscesses she has had multiple I and D's. The patient reported that her bilateral upper thigh abscesses were both above the knees, 1 higher up on the right thigh as well, and 1 lower on the right singleton that were reddened, looked irritated and somewhat oozy. Some were healed. There were others that she states she went to [facility] for and was placed on clindamycin and Bactrim. Abscess on her left lower arm popped up on Wednesday08/30/2016. She did report subjective fevers and chills. She did go see Dr. Hunt on the day of her admission. She was directly admitted and started on IV vancomycin as well as Zosyn. On her physical examination patient had multiple sites on her upper and lower extremities that looked like she had been IV popping and multiple stages of healing and irritation as well as redness and oozing. Dr. Cano was consulted with Surgery. He performed an I and D on that abscess. She was continued on IV antibiotics. Her wound did grow out Klebsiella oxytoca. The patient had one positive blood culture that was determined to be a contaminant. The patient was kept here several days awaiting the culture. She did unfortunately develop an acute kidney injury secondary to vancomycin and Zosyn. Those were stopped and she was placed on p.o. Levaquin as well as IV fluids. Patient's creatinine was 1.6. This went down to 1.4. Again she will be on Levaquin for 2 weeks. She will see Dr. Hunt again in 2 weeks [address] Dr. Cano in 1 week. She is to continue to follow up with her primary care physician, Dr. Houston Johnson, in 1 week. Continue with her wound care as indicated and to stay hydrated. VITAL SIGNS AT TIME OF DISCHARGE: Temperature is 97.8 degrees, heart rate 43, respirations 18, blood pressure 140/74, O2 is 99% on room air. DISCHARGE DIET: Healthy heart. DISCHARGE MEDICATIONS: 1. Xanax 0.5 mg p.o. t.i.d. 2. OxyContin 10 mg p.o. b.i.d. 3. Lyrica 100 mg p.o. t.i.d. 4. Levaquin 500 mg p.o. daily for 14 days. FOLLOWUP: 1. Patient is to follow up with Dr. Cano in 1 week. 2. She is to follow up with Dr. Azael Hunt in 2 weeks. 3. She will follow up with Dr. Houston Johnson in 1 week. 4. She will need to continue her full course of antibiotics. 5. Patient has been educated against IV drug use, however, she still maintains that she does not shoot up anymore. 6. Patient can return to the ED for any worsening of symptoms. DISCHARGE TIME: Greater than 30 minutes. Dictated by NAI Gama for Everardo Collier MD MTDD
--- NOTE | 2016-09-11 16:53 | DISCHARGE SUMMARY ---
ADMISSION DATE: 08/31/2016 DISCHARGE DATE: 09/04/2016 DISCHARGE SUMMARY ADDENDUM: Answer: ATN due to toxic nephropathy secondary to vancomycin.
== END 2016-09-04 17:07 | disposition home or self-care (01) | DRG 602 ==
LOC: DIRADM 09:46 → 3N 10:19
PROVIDERS: ATTEND Internal Medicine
PROC: 0H9EXZZ Drainage of Left Lower Arm Skin, External Approach (ICD-10-PCS; principal; 2016-09-01 15:02)
DX: L02.414 Cutaneous abscess of left upper limb (principal); N17.0 Acute kidney failure with tubular necrosis; L02.213 Cutaneous abscess of chest wall; L02.415 Cutaneous abscess of right lower limb; I10 Essential (primary) hypertension; F32.9 Major depressive disorder, single episode, unspecified; E11.9 Type 2 diabetes mellitus without complications; B96.1 Klebsiella pneumoniae [K. pneumoniae] as the cause of diseases classified elsewhere; L02.416 Cutaneous abscess of left lower limb; G89.4 Chronic pain syndrome; F41.9 Anxiety disorder, unspecified; G47.30 Sleep apnea, unspecified; G25.81 Restless legs syndrome; E66.9 Obesity, unspecified; T36.8X5A Adverse effect of other systemic antibiotics, initial encounter; T36.0X5A Adverse effect of penicillins, initial encounter; Z68.30 Body mass index [BMI] 30.0-30.9, adult; F17.210 Nicotine dependence, cigarettes, uncomplicated; Z79.899 Other long term (current) drug therapy; Z79.891 Long term (current) use of opiate analgesic; Z82.49 Family history of ischemic heart disease and other diseases of the circulatory system; Z80.9 Family history of malignant neoplasm, unspecified; Z91.19 Patient's noncompliance with other medical treatment and regimen; Z91.128 Patient's intentional underdosing of medication regimen for other reason; M79.7 Fibromyalgia
CPT/HCPCS: 36569; 80048; 80053; 80202; 81001; 85025; 85027; 85610; 87040; 87070; 87075; 87077; 87088; 87186; 87205; G0480; J1170; J2250; J2405; J2543; J2550; J3370; J7030; J7040; J7050; 80324; 80345; 80346; 80349; 80353; 80358; 80361; 80365; 83992

== ENCOUNTER 2016-10-20 09:14 | Inpatient (IN) ==
[2016-10-21] MEDS ORDERED: SALINE LOCK IV FLUID XX ONE (17:43)
[2016-10-21] MEDS ORDERED: TUBERSOL ID ONE (17:43)
[2016-10-21] MEDS ORDERED: ROBAXIN PO PRN (17:43)
[2016-10-21] MEDS ORDERED: IMODIUM PO PRN (17:43)
[2016-10-21] MEDS ORDERED: MAALOX PLUS LIQUID PO PRN (17:43)
[2016-10-21] MEDS ORDERED: LIBRIUM PO PRN (17:43)
[2016-10-21] MEDS ORDERED: TYLENOL PO PRN (17:43)
[2016-10-21] MEDS ORDERED: ZOFRAN IV PRN (17:43)
[2016-10-21] MEDS ORDERED: BENTYL PO PRN (17:43)
[2016-10-21] MEDS ORDERED: DULCOLAX PR PRN (17:43)
[2016-10-21] MEDS ORDERED: MOTRIN PO PRN (17:43)
[2016-10-21] MEDS ORDERED: SENOKOT PO PRN (17:43)
[2016-10-21] MEDS ORDERED: PHENERGAN PO PRN (17:43)
[2016-10-21 18:49] LABS: MANUAL DIFF NEEDED? NO
[2016-10-21 19:01] LABS: BASO% 0.3 % (0.0-0.8); EOS# 0.25 X1000 (0.0-0.7); EOS% 2.3 % (0.0-10.0); HEMATOCRIT 37.5 % (37.0-47.0); HEMOGLOBIN 11.6 g/dL (12.0-16.0); IMM GRAN# 0.03 X1000 (0.0-0.04); IMM GRAN% 0.3 % (0.0-0.5); LYMPH# 2.93 X1000 (1.2-3.4); LYMPH% 27.2 % (20.5-51.1); MCH 26.9 PG (27-31); MCHC 30.9 g/dL (33-37); MCV 86.8 FL (81-99); MONO# 0.62 X1000 (0.11-0.59); MONO% 5.8 % (1.7-9.3); MPV 11.1 FL (7.4-10.4); NEUT% 64.1 % (42.2-75.2); PLT 250 X1000 (130-400); RBC 4.32 XMIL (4.2-5.4)
[2016-10-21] MEDS: SUBOXONE 2 MG/0.5 MG SL SCH (19:09)
[2016-10-21] MEDS: M.V.I.-12 10 ML, FOLIC ACID 1 MG, MAGNESIUM SULFATE 1 GM, THIAMINE 100 MG in NS 1,000 ML IV ONE ×2 (19:10→21:05)
[2016-10-21] MEDS: NICODERM PATCH TD SCH (19:11)
[2016-10-21 19:17] LABS: AGAP 10; ALBUMIN 3.1 g/dL (3.5-5.0); ALKALINE PHOSPHATASE 91 U/L (32-104); AMYLASE 35 U/L (20-200); BUN 7 mg/dL (8-22); CALCIUM 8.4 mg/dL (8.8-10.2); CHLORIDE 103 mmol/L (98-107); COSMO 272; GOT 11 U/L (10-30); GPT 7 U/L (10-36); LIPASE 31 U/L (13-60); POTASSIUM 3.2 mmol/L (3.5-5.1); SODIUM 137 mmol/L (136-145); TCO2 25 mmol/L (25-35); TOTAL PROTEIN 7.8 g/dL (6.3-8.3)
[2016-10-21 19:31] LABS: INR 0.97 (0.86-1.15); PROTIME 13.2 Seconds (12.1-15.5)
[2016-10-21 19:32] LABS: PTT PL 35.5 Seconds (22.6-43.9)
[2016-10-21] MEDS: AMBIEN PO PRN (21:29)
[2016-10-21] MEDS: SINEMET 25/100 PO PRN (21:29)
[2016-10-22] MEDS: SUBOXONE 2 MG/0.5 MG SL SCH ×2 (06:02→17:23)
[2016-10-22] MEDS ORDERED: KLOR-CON PO ONE (06:51)
[2016-10-22 06:55] LABS: URINE SOURCE VOIDED
[2016-10-22 06:59] LABS: BILIRUBIN URINE NEGATIVE (NEGATIVE); BLOOD URINE 2+ (NEGATIVE); CLARITY SL. CLOUDY (CLEAR); COLOR YELLOW; GLUCOSE URINE NEGATIVE (NEGATIVE); LEUKOCYTES URINE 2+ (NEGATIVE); NITRITE URINE POSITIVE (NEGATIVE); PROTEIN URINE TRACE mg/dL (NEGATIVE); SP GRAVITY URINE 1.015; URINE MICROSCOPIC NEEDED? YES; UROBILINOGEN URINE NORMAL
[2016-10-22 07:01] LABS: UR AMPHETAMINES QUAL NONE DETECTED (NONE DETECT); UR BARBITUATES QUAL NONE DETECTED (NONE DETECT); UR BENZODIAZEPIN QUAL PRESUMPTIVE POSITIVE (NONE DETECT); UR COCAINE QUAL PRESUMPTIVE POSITIVE (NONE DETECT); UR MDMA QUAL NONE DETECTED (NONE DETECT); UR METHADONE QUAL NONE DETECTED (NONE DETECT); UR METHAMPHETAMINE QUAL NONE DETECTED (NONE DETECT); UR OPIATES QUAL NONE DETECTED (NONE DETECT); UR OXYCODONE QUAL PRESUMPTIVE POSITIVE (NONE DETECT); UR PCP QUAL NONE DETECTED (NONE DETECT); UR TCA QUAL NONE DETECTED (NONE DETECT)
[2016-10-22 07:02] LABS: UR CANNABINOIDS QUAL PRESUMPTIVE POSITIVE (NONE DETECT)
[2016-10-22 07:20] LABS: URINE EPITHELIAL CELLS <10 /HPF (<10); URINE WBC 20-40 /HPF (<10)
[2016-10-22] MEDS: FOLIC ACID PO SCH (08:57)
[2016-10-22] MEDS: NICODERM PATCH TD SCH (08:57)
[2016-10-22] MEDS: VITAMIN B-1 PO SCH (08:57)
[2016-10-22] MEDS: THERA M PLUS PO SCH (08:57)
[2016-10-22] MEDS: SINEMET 25/100 PO PRN (20:05)
[2016-10-22] MEDS: AMBIEN PO PRN (20:05)
[2016-10-23] MEDS: SINEMET 25/100 PO PRN ×2 (06:13→14:02)
[2016-10-23] MEDS: FOLIC ACID PO SCH (09:55)
[2016-10-23] MEDS: VITAMIN B-1 PO SCH (09:55)
[2016-10-23] MEDS: NICODERM PATCH TD SCH (09:55)
[2016-10-23] MEDS: THERA M PLUS PO SCH (09:55)
[2016-10-23] MEDS: SUBOXONE 8 MG/2 MG SL SCH ×2 (09:55→20:47)
[2016-10-23] MEDS: ZOFRAN ODT PO PRN (14:02)
[2016-10-23] MEDS: AMBIEN PO PRN (20:47)
[2016-10-24] MEDS: ZOFRAN ODT PO PRN (03:58)
[2016-10-24] MEDS: SINEMET 25/100 PO PRN (03:58)
[2016-10-24 07:41] VITALS: BP 122/44
[2016-10-24] MEDS: NICODERM PATCH TD SCH (09:13)
[2016-10-24] MEDS: FOLIC ACID PO SCH (09:13)
[2016-10-24] MEDS: VITAMIN B-1 PO SCH (09:13)
[2016-10-24] MEDS: SUBOXONE 8 MG/2 MG SL SCH (09:14)
[2016-10-24] MEDS: THERA M PLUS PO SCH (09:14)
--- NOTE | 2016-10-31 15:43 | HISTORY AND PHYSICAL ---
CHIEF COMPLAINT: Nausea, vomiting. HISTORY OF PRESENT ILLNESS: Patient is a 41-year-old female, who presented to [facility] secondary to nausea, vomiting, abdominal pain. States that she has been using and abusing opiates again. States that she has been trying to stop but her withdrawal symptoms become too severe and she starts having increased nausea, vomiting, abdominal pain and has to start using again to alleviate the symptoms. SOCIAL HISTORY: Patient is single. She lives at home. Does not have children that live in the house. She lives in [place]. She is on disability. SUBSTANCE ABUSE HISTORY: Patient notes that she began using opiates as early as age 36. Currently she is taking Roxicodone 30 mg, at least 8-10 a day. She started smoking as early as age 19, currently smokes a pack a day. Denies any other illicit substances. Does not drink. PAST MEDICAL HISTORY: Depression, anxiety. Patient has been in a treatment facility in early 2011 and then later in 2011 for opiate abuse. She stayed clean for several days the first time, and in several months the second time, but then ultimately began re-abusing. REVIEW OF SYSTEMS: Her CINA score is 16 secondary to nausea, vomiting, frequent abdominal pain. Complains of frequent nausea, occasional dry heaves. Denies any fevers or chills. States that she has had tremors in her arms and legs. She has felt restless and irritable. She has been unable to sit still. She frequently has to move about. She has had decreased oral intake. Denies any headaches, blurry vision. Denies any change in her vision. Denies focalized numbness, tingling or weakness in her extremities. Denies any diarrhea, constipation, melena, or hematochezia. MEDICATIONS: No current medications. ALLERGIES: None. FAMILY HISTORY: Noncontributory. PHYSICAL EXAMINATION: VITAL SIGNS: Reviewed. GENERAL APPEARANCE: Patient is awake, alert. She is currently in no real respiratory distress. Speech is regular. Memory is intact. HEENT: Normocephalic, atraumatic. [place]. NECK: Supple. CV: Regular rate and rhythm. CHEST: Relatively clear. ABDOMEN: Soft. EXTREMITIES: Moves all extremities. NEUROLOGIC: No focal neurological changes. SKIN: Warm and dry. No rashes. LABS: Reviewed. ASSESSMENT: 1. Nausea and vomiting. 2. Abdominal pain. 3. Tremors. 4. Myalgias. 5. Paresthesias. 6. Paroxysmal sweating. 7. Opiate abuse, withdrawal, and stabilization. 8. Anxiety and depression. PLAN: We will admit patient to the hospital. IV fluids. IV banana bag. We will continue to follow. We will place her on multivitamins daily. We will place her on Suboxone, begin counseling. We will control her withdrawal symptoms with symptomatic medications. Further orders as needed. cc: Rosalino Singer MD
--- NOTE | 2016-10-31 18:19 | DISCHARGE SUMMARY ---
ADMISSION DATE: 10/21/2016 DISCHARGE DATE: 10/24/2016 DISCHARGE DIAGNOSES: 1. Nausea and vomiting. 2. Abdominal pain. 3. Tremors. 4. Myalgias. 5. Paresthesias. 6. Paroxysmal sweating. 7. Opiate abuse withdrawal and stabilization. 8. Chronic anxiety and depression. CONSULTATIONS: None. PROCEDURES: None. BRIEF HOSPITAL COURSE: Patient is a 41-year-old female, who was admitted as noted in the HPI, treated in the usual fashion, placed on protocol to alleviate her withdrawal symptoms, was given Suboxone which she tolerated very well. On discharge, patient is awake, alert, oriented. She is currently in no respiratory distress. Her speech is regular. Her memory appears intact. Neck is supple. CV is regular rate. The patient is able to ambulate in the lucio. She is eating better, she is sleeping better. She notes that her withdrawal symptoms have all but resolved. DISPOSITION: The patient will be discharged home. She will continue to follow up outpatient with treatment facility of choice. She will continue Suboxone twice a day 02/03. She will continue to try to wean down her cigarettes. Discussed with patient that she needs to avoid all persons, places, situations in which she has been using and abusing in the past. She needs outpatient life counseling as well as drug counseling. Thirty-five minutes was spent in discharge planning and instructions. cc: Rosalino Singer MD
== END 2016-10-24 12:25 | disposition home or self-care (01) ==
LOC: P.DIRADM 10-21 14:41 → P.MEDSURG 10-21 14:50
PROVIDERS: ADMIT Family Medicine; ATTEND Family Medicine